=== PATIENT | male | born 1980 ===

== ENCOUNTER 2023-01-08 02:09 | Outpatient (CLI) | payer OTHER, SELFPAY ==
--- NOTE | 2023-01-08 09:15 | DI.NM_ITS ---
APPROVED REPORT Exam: Pharmacologic Patient Location: Out-Patient Room/Bed: Stress Nurse: Katharina Gonzales RN Ordering Provider:PATRICIA GRAVES, Contact Number: [phone] BMI: 41.13 Baseline Rhythm: Sinus Bradycardia, RBBB Indications: Chest pain, HTN, HLD, Moder risk for cardiology etiology Medical History Medical History: HTN, T2DM, HLD, Asthma Cardiac Medications: Nitro, Asa, HCTZ, Atorvastatin, Metformin, Albuterol, Pantoprazole Allergies: NKA Cardiac Risk Factors: +family history, HTN, DM II, HLD, Asthma, Obesity Previous Cardiac Procedures: None Pretest Chest Pain Characteristics: None Exercise History: Indeterminate Physical Disabilities: Torn meniscus Lung Sounds: LCTA Heart Sounds: Regular, s1/s2 Stress Test Details Test: Pharmacologic stress testing performed using 0.4 mg of regadenoson per 5 mL given IV over 10 s econds. Reason for pharmacologic stress test: physical limitation. Nuclear Acquisition: Rest Tc-99m/Stress Tc-99m 1 day Rest Isotope: Tc-99m Sestamibi. Dose: 15.0 Date: 01/08/2023 Injection Time: 0900 Stress Isotope: Tc-99m Sestamibi. Dose: 46.0 Date: 01/08/2023 Injection Time: 1045 HR Resting HR Supine: 58 bpm Max Heart Rate (APMHR): 179.711712 bpm Resting HR Standin bpm Target HR (85% APMHR): 152.662337 bpm Max HR Achieved: 91 bpm % of APMHR: 50.84 Recovery HR: 66 bpm BP Resting BP Supine: 128/78 mmHg Resting BP Standin/100 mmHg Max BP: 148/100 mmHg Recovery BP: 114/64 mmHg ECG Resting ECG: Sinus Bradycardia, RBBB Ectopy: None Stress ECG: Sinus Rhythm, RBBB ST Change: No significant ST segment changes noted Arrhythmia: None Recovery ECG: Sinus Rhythm, RBBB Recovery ST Change: No significant ST segment changes noted Recovery Arrhythmia: None Clinical Stress Symptoms: Mild shortness of breath, mild chest tightness Rate Pressure Product: [id number] Stress ECG Conclusion 1. Resting electrocardiogram showed a right bundle branch block 2. Patient underwent pharmacologic stress with regadenoson 3. Peak heart rate achieved was 53% of predicted heart rate for age 4. The electrocardiographic portion of the test was nondiagnostic due to inadequate heart rate 5. See MPI report Stress Test Summary STAGE HR BP SpO2 Symptoms NOTES Supine 58 128/78 Standing 75 148/100 1 min post Lexiscan injection 75 124/88 mild shortness of breath, mild chest tightness 3 min post Lexiscan injection 69 120/72 symptoms resolved 6 min post Lexiscan injection 66 114/64 MPI Conclusion Myocardial perfusion is normal. There is no ischemia or evidence of prior infarction Calculated EF is 39%. Visually it appears higher and within the range of normal. There were no wall motion abnormalities Radiologist Interpretation Radiologist agrees with Collision Repairer's Interpretation. Radiologist Interpretation by: Keon Rowan MD Interpretation Date/Time: 01/14/2023 10:31:04
[2023-01-08] MEDS: Regadenoson 0.4 MG/5 ML SYR IVP (11:10)
== END 2023-01-08 02:29 ==
LOC: DI 02:09
PROVIDERS: Visit Provider Physical Therapist
DX: R00.1 Bradycardia, unspecified (principal); I45.10 Unspecified right bundle-branch block
CPT/HCPCS: 78452; 93017; J2785